=== PATIENT | male | born 1940 | race Caucasian/White ===

== ENCOUNTER 2017-08-25 10:00 | Inpatient (IN) | payer OTHER ==
[~2017-08-25] VITALS: Ht 182.9 cm; Wt 101.9 kg
[~2017-08-25 10:00] MED LIST: ATOR40TA69 PO; FISH1CAP27 PO; LEVO125T11 PO; LISI30TA4 PO; MULT-60 PO; VITA400C70 PO
[2017-08-26 15:33] VITALS: BP 150/77
[2017-08-26 15:40] LABS: APPEARANCE,URINE Clear (CLEAR); BILIRUBIN,URINE Negative (NEGATIVE); COLOR,URINE Yellow (YELLOW); GLUCOSE, URINE (UA) Negative (NEGATIVE); KETONES,URINE Negative (NEGATIVE); LEUKOCYTE ESTERASE ,URINE Negative (NEGATIVE); NITRATE,URINE Negative (NEGATIVE); OCCULT BLOOD,URINE Negative (NEGATIVE); PROTEIN,URINE Negative (NEGATIVE)
[2017-08-27] VITALS (16 sets, daily range): BP systolic 93–150; BP diastolic 43–98
[2017-08-27] MEDS ORDERED: NEOMY SULF/POLYMYXIN B SULFATE 1 ML AMPUL IR ONE (11:23)
[2017-08-27] MEDS ORDERED: TRANEXAMIC ACID 1000MG/10ML IV ONE (11:31)
[2017-08-27] MEDS ORDERED: LACTATED RINGERS 1000ML 1,000 ML IV ONE (11:50)
[2017-08-27] MEDS: CEFAZOLIN SODIUM 1 GM VIAL ONE ×2 (11:59→12:47)
[2017-08-27] MEDS ORDERED: ASPI-555 PO (11:59)
[2017-08-27] MEDS ORDERED: LIDOCAINE PF 2% 5ML ABBOJECT ONE (12:10)
[2017-08-27] MEDS ORDERED: DEXAMETHASONE SOD PHOSPHATE 10MG/ML 1ML VIAL ONE (12:10)
[2017-08-27] MEDS ORDERED: ONDANSETRON HCL 4 MG/2 ML VIAL ONE (12:10)
[2017-08-27] MEDS ORDERED: FENTANYL CITRATE PF 50 MCG/1 ML 2ML VIAL ONE ×2 (12:10→14:13)
[2017-08-27] MEDS ORDERED: SUCCINYLCHOLINE 200MG/10ML SYR ONE (12:10)
[2017-08-27] MEDS ORDERED: GLYCOPYRROLATE 0.2 MG/ML 5 ML VIAL ONE (12:10)
[2017-08-27] MEDS ORDERED: PROPOFOL 10 MG/ML 20ML VIAL IV ONE ×2 (12:10→15:19)
[2017-08-27] MEDS ORDERED: MIDAZOLAM HCL 1 MG/ML 2ML VIAL ONE (12:11)
[2017-08-27] MEDS ORDERED: BUPIVACAINE/PF 0.5% 30ML VIAL ONE (12:16)
[2017-08-27] MEDS ORDERED: EPINEPHRINE 1 MG/ML AMPULE ONE (12:16)
[2017-08-27] MEDS ORDERED: DURAMORPH PF1 MG/ML 10ML AMP IV ONE (12:17)
[2017-08-27] MEDS ORDERED: KETOROLAC TROMETHAMINE 30MG/ML ONE (12:19)
[2017-08-27] MEDS ORDERED: ROPIVACAINE 0.5% 5MG/ML 30ML IJ ONE (12:35)
[2017-08-27] MEDS ORDERED: EPHEDRINE SULFATE 50 MG/ML AMPULE ONE (13:52)
[2017-08-27] MEDS ORDERED: CALDOLOR 800MG+NS 250ML 250 ML IV ONE (14:12)
[2017-08-27] MEDS ORDERED: CEFAZOLIN SODIUM 1 GM VIAL ONE (14:17)
[2017-08-27] MEDS: KETOROLAC TROMETHAMINE 30MG/ML IV PRN (15:00)
[2017-08-27] MEDS ORDERED: POTASSIUM CHLORIDE 10% ELIXIR 20 MEQ/15 ML UDCUP PO PRN (15:45)
[2017-08-27] MEDS ORDERED: TRAMADOL HCL 50 MG TABLET PO PRN (15:45)
[2017-08-27] MEDS ORDERED: TEMAZEPAM 15 MG CAPSULE PO PRN (15:45)
[2017-08-27] MEDS ORDERED: DIPHENHYDRAMINE HCL 25 MG CAPSULE PO PRN (15:45)
[2017-08-27] MEDS ORDERED: DiphenhydrAMINE HCL 50 MG/ML VIAL IVP PRN (15:45)
[2017-08-27] MEDS ORDERED: OXYCODONE HCL 5 MG TAB PO PRN ×2 (15:45)
[2017-08-27] MEDS ORDERED: POTASSIUM CHLORIDE 20 MEQ ERTAB PO PRN (15:45)
[2017-08-27] MEDS ORDERED: PROMETHAZINE HCL 25 MG/ML 1ML AMPULE IM PRN (15:45)
[2017-08-27] MEDS ORDERED: LIDOCAINE HCL-MPF 1% 2ML VIAL IVP PRN (15:45)
[2017-08-27] MEDS ORDERED: FERROUS FUMARATE 324 MG TABLET PO PRN (15:45)
[2017-08-27] MEDS: SODIUM CHLORIDE 0.9% 1000ML 1,000 ML IV SCH (17:46)
[2017-08-27] MEDS ORDERED: CEFAZOLIN 2GM / 50 ML 50 ML IV SCH (20:45)
[2017-08-27] MEDS: CEFAZOLIN SODIUM 1 GM VIAL IVP SCH (20:50)
[2017-08-27] MEDS: CELECOXIB 200 MG CAP PO SCH (20:50)
[2017-08-27] MEDS: FAMOTIDINE 20MG TAB 20 MG TAB PO SCH (20:59)
[2017-08-27] MEDS ORDERED: ATORVASTATIN CALCIUM 40 MG TABLET PO SCH (21:00)
[2017-08-27] MEDS: FISH OIL 1000 MG/CAP PO SCH (21:00)
[2017-08-27] MEDS ORDERED: LISINOPRIL 10 MG TABLET PO SCH (21:00)
[2017-08-28] MEDS: SODIUM CHLORIDE 0.9% 1000ML 1,000 ML IV SCH ×2 (03:57→11:32)
[2017-08-28] MEDS: CEFAZOLIN SODIUM 1 GM VIAL IVP SCH (04:04)
[2017-08-28 05:08] LABS: HEMATOCRIT 30.6 % (42-54); MEAN CORPUSCULAR HEMOGLOBIN 33.4 pg (27.0-33.0); MEAN CORPUSCULAR VOLUME 90.1 fL (79-99); PLATELET COUNT (AUTO) 168 K/uL (130-400); RED BLOOD CELL COUNT(AUTO) 3.39 MIL/uL (4.50-6.20); RED CELL DISTRIBUTION WIDTH 12.7 % (11.0-15.5); WHITE BLOOD COUNT (AUTO) 10.6 K/uL (4.8-10.8)
[2017-08-28 05:11] LABS: INR 1.07 (0.85-1.15); PROTHROMBIN TIME 11.2 SEC (9.6-11.6)
[2017-08-28 05:17] LABS: CREATININE 1.3 mg/dL (0.5-1.5); POTASSIUM 4.3 mmol/L (3.5-5.1)
[2017-08-28 07:30] VITALS: BP 103/61
[2017-08-28] MEDS: FISH OIL 1000 MG/CAP PO SCH (08:32)
[2017-08-28] MEDS: CELECOXIB 200 MG CAP PO SCH (08:32)
[2017-08-28] MEDS: FAMOTIDINE 20MG TAB 20 MG TAB PO SCH (08:32)
[2017-08-28] MEDS ORDERED: LEVOTHYROXINE 125 MCG TABLET PO SCH (09:00)
[2017-08-28] MEDS ORDERED: ASPIRIN 81 MG EC TAB PO SCH (09:00)
[2017-08-28] MEDS ORDERED: MULTIVITAMIN TABLET PO SCH (09:00)
[2017-08-28] MEDS: KETOROLAC TROMETHAMINE 30MG/ML IV PRN (09:30)
[2017-08-28 11:00] VITALS: BP 94/58
[2017-08-28] MEDS ORDERED: PSYLLIUM SEED 1 EACH PACKET PO SCH (12:00)
[2017-08-28] MEDS ORDERED: RIVAROXABAN 10 MG TABLET PO SCH (15:45)
[2017-08-29] MEDS ORDERED: VITAMIN E 400 UNIT CAPSULE PO SCH (09:00)
[2017-08-29] MEDS ORDERED: BISACODYL 5 MG TABLET.DR PO PRN (15:45)
[2017-08-30] MEDS ORDERED: BISACODYL 10 MG SUPP.RECT RC PRN (15:45)
== END 2017-08-28 16:05 | disposition home health service (06) | DRG 470 ==
LOC: EDSTATUS 10:00 → DAHIP 08-27 10:37 → 4AH 08-27 16:29
PROVIDERS: ADMIT Orthopaedic Surgery Adult Reconstructive Orthopaedic Surgery; ATTEND Orthopaedic Surgery Adult Reconstructive Orthopaedic Surgery
PROC: 0SRD0J9 Replacement of Left Knee Joint with Synthetic Substitute, Cemented, Open Approach (ICD-10-PCS; principal; 2017-08-28)
DX: M17.12 Unilateral primary osteoarthritis, left knee (principal); E07.9 Disorder of thyroid, unspecified; I10 Essential (primary) hypertension; M21.00 Valgus deformity, not elsewhere classified, unspecified site; I25.10 Atherosclerotic heart disease of native coronary artery without angina pectoris; Z96.652 Presence of left artificial knee joint; Z95.1 Presence of aortocoronary bypass graft
CPT/HCPCS: 36415; 73562; 80048; 81003; 85027; 85610; 86850; 86900; 86901; 88305; 88311; A4218; C1713; J0171; J0330; J0690; J1100; J1741; J1885; J2001; J2250; J2274; J2405; J2704; J2795; J3010; J3490; J7030; J7120

== ENCOUNTER 2018-10-15 17:38 | Observation (INO) | payer OTHER ==
[~2018-10-15] VITALS: Ht 188 cm; Wt 100.9 kg
[~2018-10-15 17:38] MED LIST changes: +ASPI-555 PO
[2018-10-15] MEDS ORDERED: SODIUM CHLORIDE 0.9% 1000ML 1,000 ML IV SCH (19:00)
[2018-10-15 19:22] LABS: BASOPHILS % (AUTO) 0.5 % (0.0-5.0); EOSINOPHILS % (AUTO) 2.5 % (0.0-8.0); HEMATOCRIT 40.8 % (42-54); LYMPHOCYTES % (AUTO) 20.6 % (21.0-51.0); MEAN CORPUSCULAR HEMOGLOBIN 31.2 pg (27.0-33.0); MEAN CORPUSCULAR HGB CONC 34.4 g/dL (32.0-36.0); MEAN CORPUSCULAR VOLUME 90.6 fL (79-99); MONOCYTES % (AUTO) 9.4 % (3.0-13.0); PLATELET COUNT (AUTO) 221 K/uL (130-400); RED BLOOD CELL COUNT(AUTO) 4.51 MIL/uL (4.50-6.20); RED CELL DISTRIBUTION WIDTH 13.4 % (11.0-15.5); WHITE BLOOD COUNT (AUTO) 5.2 K/uL (4.8-10.8)
[2018-10-15 19:33] LABS: CREATININE 1.1 mg/dL (0.5-1.5); POTASSIUM 4.1 mmol/L (3.5-5.1)
[2018-10-15 19:37] LABS: ALBUMIN 3.9 g/dL (3.5-5.0); BILIRUBIN,TOTAL 0.8 mg/dL (0.2-1.0); TOTAL PROTEIN, SERUM 7.1 g/dL (6.0-8.3)
--- NOTE | 2018-10-15 23:45 | NUR ---
Admission Assessment Received pt from ED per wheelchair with no family around, NS at 75cc/hr infusing well, routine admission assessment done,. plan of care discuss & made aware of all results of the lab works & radiologic studies in Ed. Per pt stated he has been feeling sick about 3 weeks ago after he had a dental works, root canal done but was told by the dentist he need to see his PCP to be check. Pt claimed to have been feverish with chills & with severe headaches that comes & go. Pt made aware I will just allow him to have some water as Dr. Khalil has not given us a diet.
[2018-10-16] VITALS (8 sets, daily range): BP systolic 121–150; BP diastolic 70–98
[2018-10-16] MEDS ORDERED: FISH1CAP27 PO (00:06)
[2018-10-16] MEDS ORDERED: VITAMIN E 400 UNIT CAPSULE PO SCH (09:00)
[2018-10-16] MEDS ORDERED: LEVOTHYROXINE 125 MCG TABLET PO SCH (09:00)
[2018-10-16] MEDS ORDERED: MULTIVITAMIN TABLET PO SCH (09:00)
[2018-10-16] MEDS ORDERED: FISH OIL 1000 MG/CAP PO SCH (09:00)
[2018-10-16] MEDS ORDERED: ASPIRIN 81 MG EC TAB PO SCH (09:00)
--- NOTE | 2018-10-16 12:56 | NUR ---
INITIAL: Met with pt and spouse this afternoon to discuss dcp. Pt lives w his spouse, he is independent w ambulation and ADLs. Pt states that he is very active and drives where needed. Per pt he feels safe and comfortable to return at dc. Will continue to follow and wait for Md recommendations. Addendum: 10/16/18 at 1258 by SALLIE ALVARENGA CM Amended: Links added.
--- NOTE | 2018-10-16 18:30 | NUR ---
DISCHARGE PATIENT GIVEN DISCHARGE INSTRUCTION VIA TEACH BACK. 20G PIV TO RAC DISCONTINUED, TIP INTACT. RX FOR AMLODIPINE 2.5MG 1 TAB PO QD. FOLLOW UP WITH DR. TORRES ON THURSDAY. ORTHOSTATIC VITAL SIGNS TAKEN, WITHIN NORMAL LIMITS. PATIENT STABLE AT THIS TIME. SPOUSE PRESENT AT THIS TIME TO TRANSPORT PATIENT HOME.
[2018-10-16] MEDS ORDERED: LISINOPRIL 20 MG TABLET PO SCH (21:00)
[2018-10-16] MEDS ORDERED: ATORVASTATIN CALCIUM 40 MG TABLET PO SCH (21:00)
== END 2018-10-16 18:00 | disposition home or self-care (01) ==
LOC: EDH 17:38 → INTOOBSV 17:39 → EDHIP 17:39 → 3AH 23:35
PROVIDERS: ADMIT Internal Medicine; ATTEND Internal Medicine
DX: R51 Headache (principal); E78.5 Hyperlipidemia, unspecified; I25.10 Atherosclerotic heart disease of native coronary artery without angina pectoris; I10 Essential (primary) hypertension; Z87.891 Personal history of nicotine dependence; Z79.899 Other long term (current) drug therapy
CPT/HCPCS: 36415; 70450; 71250; 74176; 80053; 82150; 83690; 85025; 93880; 99284; A4510; G0378 ×24